=== PATIENT | female | born 1955 | race Caucasian/White ===

== ENCOUNTER → 2016-08-15 | Outpatient (REF) | payer OTHER ==
[2016-08-15 15:38] LABS: BASO % 0.5 % (0.0-1.0); EOS # 0.1 K/mm3 (0.0-0.50); EOS % 2.2 % (0.0-3.0); LARGE UNSTAINED CELL # 0.1 K/mm3 (0.0-0.4); LARGE UNSTAINED CELL % 2.1 % (0.0-4.0); LYMPH # 1.7 K/mm3 (1.5-4.5); LYMPH % 29.3 % (24.0-44.0); MEAN CORPUSCULAR HEMOGLOBIN 25.4 pg (27.0-33.0); MEAN CORPUSCULAR HGB CONC 31.3 g/dl (32.0-36.5); MONO # 0.3 K/mm3 (0.0-0.8); MONO % 5.1 % (0.0-5.0); NEUTROPHILS # 3.5 K/mm3 (1.8-7.7); NEUTROPHILS % 60.8 % (36.0-66.0); PLATELET COUNT, AUTOMATED 198 k/mm3 (150-450); RED CELL DISTRIBUTION WIDTH 15.4 % (11.5-14.5); WHITE BLOOD COUNT 5.7 K/mm3 (4.0-10.0)
[2016-08-15 15:56] LABS: ERYTHROCYTE SEDIMENTATION RATE 29 mm/hr (0-30)
== END ==
LOC: M LABDRAW1 15:14
PROVIDERS: ATTEND Physician Assistant
DX: M17.0 Bilateral primary osteoarthritis of knee (principal)

== ENCOUNTER → 2018-06-09 | Outpatient (REF) | LOC: M LAB LCGH 09:42 | PROVIDERS: ATTEND Obstetrics & Gynecology | DX: Z12.4 Encounter for screening for malignant neoplasm of cervix (principal) ==

== ENCOUNTER → 2020-04-22 | Outpatient (CLI) | payer OTHER ==
[~2020-04-22] MED LIST: ALL10TAB PO; AMIT50TA PO; ASPI81CH33 PO; ATOR1TAB21 PO; BASA100I SC; DEXI60CA2 PO; FARX1TAB5 PO; FLAX1CAP5 PO; FLUTISP; GOLDPOW2 TOP; HYDR-3713 PO; IBUP200C25 PO; ICYCRE TOP; IRON65TA2 PO; LEVO175T2 PO; LOSA100T50 PO; METF10004 PO; MONT10TA10 PO; NYSTOI TOP; REFR0.5D8 OU; TUMS500C PO; VENTAER INH; VERA240C PO; ZOLO100T PO
== END ==
LOC: M LABSMTC 09:27
PROVIDERS: ATTEND Anesthesiology
DX: Z01.812 Encounter for preprocedural laboratory examination (principal); Z20.822 Contact with and (suspected) exposure to COVID-19

== ENCOUNTER 2020-04-27 08:25 | Day surgery (SDC) | payer MEDICARE ==
[~2020-04-27] VITALS: Ht 154.9 cm; Wt 97.5 kg
[~2020-04-27 08:25] MED LIST changes: +LIDOCAINE 1% MDV 20ML VIAL SQ PRN; +LR 1,000 ML IV ONE
[2020-04-27] MEDS ORDERED: LIDOCAINE 1% SDV 30ML VIAL As Ordered ONE (11:13)
[2020-04-27] MEDS ORDERED: LIDOCAINE W/EPINEPHRINE 1% 20ML VIAL As Ordered ONE (11:13)
[2020-04-27] MEDS ORDERED: POLYSPORIN TOPICAL OINTMENT 15GM As Ordered ONE (11:14)
[2020-04-27] MEDS ORDERED: propofoL 200 MG/20 ML VIAL As Ordered ONE (11:28)
[2020-04-27] MEDS ORDERED: LIDOCAINE 2% 100MG/5ML SDV (FOR ANES.) As Ordered ONE (11:28)
[2020-04-27] MEDS ORDERED: MIDAZOLAM INJ 2MG/2ML VIAL (J2250 PER 1MG) As Ordered ONE (11:28)
[2020-04-27] MEDS ORDERED: METOCLOPRAMIDE INJ 10MG/2ML VIAL (J2765 PER 1) As Ordered ONE (11:28)
[2020-04-27] MEDS ORDERED: ONDANSETRON 4MG/2ML VIAL As Ordered ONE (11:28)
[2020-04-27] MEDS ORDERED: fentaNYL 100 MCG/2 ML INJECTION (J3010) As Ordered ONE (11:28)
[2020-04-27] MEDS ORDERED: dexameTHASONE 4 MG/ML 1ML VIAL (J1100 PER 1MG) As Ordered ONE (11:28)
[2020-04-27] MEDS ORDERED: ACETAMINOPHEN 1000MG 100ML IV BTL (OFIRMEV) (J0131 PER 10MG) As Ordered ONE (11:36)
[2020-04-27] MEDS ORDERED: METOCLOPRAMIDE INJ 10MG/2ML VIAL (J2765 PER 1) IV PRN (12:20)
[2020-04-27] MEDS ORDERED: LR 1,000 ML IV SCH (12:20)
[2020-04-27] MEDS ORDERED: ONDANSETRON 4MG/2ML VIAL IV PRN (12:20)
[2020-04-27] MEDS ORDERED: fentaNYL 100 MCG/2 ML INJECTION (J3010) IV PRN (12:20)
[2020-04-27 13:00] VITALS: BP 144/76
--- NOTE | 2020-05-16 12:25 | RO ---
OPERATIVE NOTE DATE OF OPERATION: 04/27/2020 PREOPERATIVE DIAGNOSIS: Left pinna mass. POSTOPERATIVE DIAGNOSIS: Left pinna mass. PROCEDURE PERFORMED: Excision of left pinna mass, 4 mm. SURGEON: Neri Noyola MD. [employer] SUPERVISOR: ANESTHESIA: Local. CLINICAL PREAMBLE: This 65-year-old woman presented to the office with a mass lesion over the mid lower outer rim of the left pinna. Management options including excision of the left pinna lesion have been discussed. Patient understood and consented to the procedure. DESCRIPTION OF PROCEDURE: Patient was identified in preoperative holding area. Left pinna was marked. She was brought to the operating room in stable condition. In the supine position on the operating table, patient received sedation. She was then prepped and draped in the usual fashion for the procedure. The left ear was exposed. The mass lesion noted to be located at the mid lower outer rim of the left pinna. This was infiltrated with 1% lidocaine with 1:100,000 epinephrine. Excision was then performed to remove this 4 mm mass lesion. Hemostasis was achieved, and the skin was closed using 5-0 Prolene. At the end of the procedure, sponge and instrument counts were correct. No complications encountered. Estimated blood loss was less than 1 mL. Sedation was reversed, and patient was taken to the recovery room in stable condition.
== END 2020-04-27 13:10 | disposition home or self-care (01) ==
LOC: M SDC 08:25
PROVIDERS: ATTEND Otolaryngology
DX: D22.22 Melanocytic nevi of left ear and external auricular canal (principal); I10 Essential (primary) hypertension; E78.5 Hyperlipidemia, unspecified; E11.9 Type 2 diabetes mellitus without complications; E03.9 Hypothyroidism, unspecified; K21.9 Gastro-esophageal reflux disease without esophagitis; M79.7 Fibromyalgia; J45.909 Unspecified asthma, uncomplicated; G47.30 Sleep apnea, unspecified; Z79.899 Other long term (current) drug therapy
CPT/HCPCS: 11440; 88305; J0131; J1100; J2250; J2405; J2765; J3010

== ENCOUNTER → 2023-05-28 | Outpatient (CLI) | payer MEDICARE ==
[~2023-05-28] MED LIST changes: -ICYCRE TOP; -LIDOCAINE 1% MDV 20ML VIAL SQ PRN; +LOSA100T46 PO; -LOSA100T50 PO; -LR 1,000 ML IV ONE; +METH35.4 TOP; -MONT10TA10 PO; +MONT10TA97 PO; +NYST100085 TOP; -NYSTOI TOP
== END ==
LOC: M PLAIMG 09:51
PROVIDERS: ATTEND Physician Assistant Medical
DX: J32.9 Chronic sinusitis, unspecified (principal)